=== PATIENT | female | born 1990 | race Caucasian/White ===

== ENCOUNTER 2016-12-31 22:04 | Emergency (ER) | payer BC ==
[~2016-12-31] VITALS: Ht 160 cm; Wt 51.9 kg
[2016-12-31] MEDS ORDERED: MORPHINE SULFATE 4 MG/ML, 1ML IVPush PRN (23:00)
[2016-12-31] MEDS ORDERED: SODIUM CHLORIDE FLUSH 10ML SYR IVF ONE (23:00)
[2016-12-31] MEDS ORDERED: SODIUM CHLORIDE 0.9% 1,000ML IVBOLUS ONE (23:00)
[2016-12-31] MEDS ORDERED: ONDANSETRON 2MG/ML, 2ML IVPush ONE (23:00)
[2016-12-31] MEDS ORDERED: ONDANSETRON 2MG/ML, 2ML ONE (23:07)
[2016-12-31 23:21] LABS: ASPARTATE AMINO TRANSFERASE 15 U/L (15-37); BLOOD UREA NITROGEN 3 mg/dL (7-18)
[2016-12-31 23:28] VITALS: BP 107/68
[2016-12-31] MEDS ORDERED: NS + 40MEQ KCL 1,000 ML IV ONE (23:58)
[2017-01-01] MEDS ORDERED: POTASSIUM CHLORIDE 20 MEQ TAB.ER.PRT PO ONE
[2017-01-01] MEDS ORDERED: POTASSIUM CHLORIDE 20 MEQ TAB.ER.PRT ONE ×2 (00:32→00:42)
== END 2017-01-01 00:53 | disposition home or self-care (01) ==
LOC: ED 23:59
DX: J02.8 Acute pharyngitis due to other specified organisms (principal); E87.6 Hypokalemia; D72.829 Elevated white blood cell count, unspecified; B34.9 Viral infection, unspecified
CPT/HCPCS: 36415; 80053; 81001; 83605; 85025; 86308; 87040; 87081; 87147; 87150; 87880; 96360; 99284; J7030; 87077